=== PATIENT | female | born 1950 | race African-American/Black ===

== ENCOUNTER → 2016-08-01 | Outpatient (CLI) | payer OTHER ==
--- NOTE | 2016-08-01 15:17 | REPMRS ---
Patient History The patient states she has not had a clinical breast exam in over a year. Patient is postmenopausal and is nulliparous. Family history of prostate cancer in father at age 50 or over, breast cancer in paternal cousin at age 40, and colorectal cancer in paternal uncle at age 50 or over. Benign excisional biopsy of the right breast, 2001. Took estrogen for 13 years. Digital Woman Screen Mammo: August 01, 2016 - Exam #: [id number] Bilateral CC and MLO view(s) were taken. Technologist: Mali Isaac, Technologist Prior study comparison: July 19, 2015, digital woman screen mammo performed at [facility]. July 14, 2014, digital woman screen mammo performed at [facility]. April 16, 2013, left breast digital mammo diagnostic unilateral, performed at [facility]. FINDINGS: There are scattered fibroglandular densities. There has been no change in the appearance of the mammogram from the prior studies. There is a mild amount of scattered fibroglandular density which is fairly symmetric. There is no interval development of dominant mass, architectural distortion, or clustered microcalcification suggestive of malignancy. ASSESSMENT: BI-RADS/ACR category 1 mammogram. Negative. Recommendation Routine screening mammogram in 1 year (for women over age 40). This mammogram was interpreted with the aid of an FDA-approved computer-aided dectection system. Electronically Signed By: José Foote MD 08/01/16 [id number]
== END ==
LOC: M WHC 13:33
PROVIDERS: ATTEND Internal Medicine
DX: Z12.31 Encounter for screening mammogram for malignant neoplasm of breast (principal); Z78.0 Asymptomatic menopausal state; Z92.23 Personal history of estrogen therapy; Z80.3 Family history of malignant neoplasm of breast

== ENCOUNTER → 2017-01-02 | Outpatient (CLI) | payer OTHER | LOC: M SLEEP 08:00 | DX: G47.33 Obstructive sleep apnea (adult) (pediatric) (principal) | CPT/HCPCS: 95810 ==

== ENCOUNTER → 2017-04-23 | Outpatient (REF) | payer OTHER ==
[2017-04-23 12:27] LABS: HEMATOCRIT 39.3 % (36.0-47.0); HEMOGLOBIN 12.7 g/dl (12.0-16.0); MEAN CORPUSCULAR HEMOGLOBIN 28.7 pg (27.0-33.0); MEAN CORPUSCULAR HGB CONC 32.3 g/dl (32.0-36.5); MEAN CORPUSCULAR VOLUME 88.7 fl (80.0-96.0); PLATELET COUNT, AUTOMATED 302 10^3/uL (150-450); RED BLOOD COUNT 4.43 10^6/uL (4.00-5.40); RED CELL DISTRIBUTION WIDTH 13.9 % (11.5-14.5); WHITE BLOOD COUNT 7.1 10^3/uL (4.0-10.0)
[2017-04-23 12:36] LABS: ALBUMIN 4.4 GM/DL (3.2-5.2); ALBUMIN/GLOBULIN RATIO 1.33 (1.00-1.93); ALKALINE PHOSPHATASE 72 U/L (45-117); ALT/SGPT 24 U/L (12-78); ANION GAP 8 MEQ/L (8-16); AST/SGOT 19 U/L (7-37); BILIRUBIN,TOTAL 0.6 MG/DL (0.2-1.0); BLOOD UREA NITROGEN 20 MG/DL (7-18); CALCIUM LEVEL 9.7 MG/DL (8.8-10.2); CARBON DIOXIDE LEVEL 28 MEQ/L (21-32); CHLORIDE LEVEL 106 MEQ/L (98-107); CHOLESTEROL LEVEL 224 MG/DL (<200); CHOLESTEROL RISK RATIO 2.909 (<5); CREATININE FOR GFR 0.96 MG/DL (0.55-1.30); GLOMERULAR FILTRATION RATE > 60.0 (>45); GLUCOSE, FASTING 93 MG/DL (70-100); HDL CHOLESTEROL 77 MG/DL (>40); LDL CHOLESTEROL 122.6 MG/DL (<100); MAGNESIUM LEVEL 2.6 MG/DL (1.8-2.4); NON-HDL-C 147 MG/DL; POTASSIUM SERUM 5.1 MEQ/L (3.5-5.1); SODIUM LEVEL 142 MEQ/L (136-145); TOTAL PROTEIN 7.7 GM/DL (6.4-8.2); TRIGLYCERIDES LEVEL 122 MG/DL (<150)
[2017-04-24 14:16] LABS: Lyme Disease IgG/IgM Antibodie <0.91 ISR (0.00-0.90); Lyme Disease IgM Ab Quantitati <0.80 index (0.00-0.79)
== END ==
LOC: M SFHCPLAZ 08:28
DX: Z01.818 Encounter for other preprocedural examination (principal); I10 Essential (primary) hypertension; E78.00 Pure hypercholesterolemia, unspecified; E03.9 Hypothyroidism, unspecified; K21.9 Gastro-esophageal reflux disease without esophagitis; W57.XXXA Bitten or stung by nonvenomous insect and other nonvenomous arthropods, initial encounter
CPT/HCPCS: 83735

== ENCOUNTER 2017-08-03 07:02 | Day surgery (SDC) | payer OTHER ==
[2017-08-03] MEDS ORDERED: PROPOFOL 200 MG/20 ML VIAL As Ordered ×2 (07:03)
[2017-08-03] MEDS ORDERED: LIDOCAINE 2% INJ 100 MG/5 ML SDV (FOR ANES.) As Ordered (07:06)
[2017-08-03] MEDS ORDERED: NS 1,000 ML IV (07:45)
== END 2017-08-03 09:08 | disposition home or self-care (01) ==
LOC: M OPP 07:02
DX: Z12.11 Encounter for screening for malignant neoplasm of colon (principal); D12.3 Benign neoplasm of transverse colon; D12.5 Benign neoplasm of sigmoid colon; Z86.010 Personal history of colon polyps; G47.30 Sleep apnea, unspecified; I10 Essential (primary) hypertension; E78.00 Pure hypercholesterolemia, unspecified; E03.9 Hypothyroidism, unspecified; M12.9 Arthropathy, unspecified; G35 Multiple sclerosis; Z79.899 Other long term (current) drug therapy; Z90.710 Acquired absence of both cervix and uterus; Z78.0 Asymptomatic menopausal state; Z96.651 Presence of right artificial knee joint; Z80.0 Family history of malignant neoplasm of digestive organs
CPT/HCPCS: 45385

== ENCOUNTER → 2017-08-28 | Outpatient (CLI) | payer OTHER | LOC: M RAD 11:46 | DX: Z12.31 Encounter for screening mammogram for malignant neoplasm of breast (principal) | CPT/HCPCS: 77067 ==

== ENCOUNTER → 2018-03-25 | Outpatient (REF) | payer OTHER ==
[~2018-03-25] MED LIST: ALEV220T26 PO; AMBI10TA PO; AMLO5TAB6 PO; CALC1TAB49 PO; LEVO25TA5 PO; LEVO50TA5 PO; MULT1TAB10 PO; NEXI40CA PO; SIMV20TA2 PO; TRAM37.53 PO; VITA100067 PO
[2018-03-25 13:28] LABS: HEMATOCRIT 40.5 % (36.0-47.0); HEMOGLOBIN 12.8 g/dl (12.0-15.5); MEAN CORPUSCULAR HEMOGLOBIN 28.7 pg (27.0-33.0); MEAN CORPUSCULAR HGB CONC 31.6 g/dl (32.0-36.5); MEAN CORPUSCULAR VOLUME 90.8 fl (80.0-96.0); PLATELET COUNT, AUTOMATED 267 10^3/uL (150-450); RED BLOOD COUNT 4.46 10^6/uL (4.00-5.40); WHITE BLOOD COUNT 5.3 10^3/uL (4.0-10.0)
[2018-03-25 13:40] LABS: ALBUMIN 4.1 GM/DL (3.2-5.2); ALT/SGPT 28 U/L (12-78); BILIRUBIN,TOTAL 0.4 MG/DL (0.2-1.0); BLOOD UREA NITROGEN 14 MG/DL (7-18); CALCIUM LEVEL 9.5 MG/DL (8.8-10.2); CARBON DIOXIDE LEVEL 29 MEQ/L (21-32); CHLORIDE LEVEL 105 MEQ/L (98-107); CHOLESTEROL LEVEL 227 MG/DL (<200); CHOLESTEROL RISK RATIO 3.197 (<5); CREATININE FOR GFR 0.96 MG/DL (0.55-1.30); GLOMERULAR FILTRATION RATE > 60.0 (>45); GLUCOSE, FASTING 52 MG/DL (70-100); HDL CHOLESTEROL 71 MG/DL (>40); LDL CHOLESTEROL 132 MG/DL (<100); MAGNESIUM LEVEL 2.1 MG/DL (1.8-2.4); NON-HDL-C 156 MG/DL; POTASSIUM SERUM 4.8 MEQ/L (3.5-5.1); SODIUM LEVEL 140 MEQ/L (136-145); THYROID STIMULATING HORMONE 0.823 uIU/ML (0.358-3.740); TOTAL PROTEIN 7.4 GM/DL (6.4-8.2); TRIGLYCERIDES LEVEL 121 MG/DL (<150)
== END ==
LOC: M SFHCPLAZ 10:48
PROVIDERS: ATTEND Internal Medicine
DX: K21.9 Gastro-esophageal reflux disease without esophagitis (principal); I10 Essential (primary) hypertension; E78.00 Pure hypercholesterolemia, unspecified; E03.9 Hypothyroidism, unspecified

== ENCOUNTER → 2018-05-03 | Outpatient (CLI) | payer OTHER ==
--- NOTE | 2018-05-03 14:31 | REP ---
NONCONTRAST CHEST CT: HISTORY: Low-dose lung cancer screening exam. Tobacco use. No comparison chest imaging. FINDINGS: Digital media relations intern radiograph demonstrates a thoracolumbar scoliosis moderate in degree. Vascular calcification is noted. No significant lung nodule is appreciated. No evidence of pulmonary mass lesion is observed. Exam is otherwise unremarkable. IMPRESSION: Lung RADS category 1 negative findings. Annual screening exam suggested. Electronically Signed by Joshua Foote MD 05/03/2018 02:41 P
== END ==
LOC: M RAD 10:40
PROVIDERS: ATTEND Internal Medicine
DX: Z12.2 Encounter for screening for malignant neoplasm of respiratory organs (principal); F17.200 Nicotine dependence, unspecified, uncomplicated

== ENCOUNTER → 2018-09-20 | Outpatient (CLI) | payer OTHER ==
--- NOTE | 2018-09-20 09:54 | REPMRS ---
Patient History The patient states she has not had a clinical breast exam in over a year. Patient is postmenopausal and is nulliparous. Family history of breast cancer at age 40 in paternal cousin, colorectal cancer at age 50 or over in paternal uncle, prostate cancer at age 50 or over in father. Benign excisional biopsy of the right breast, 2001. Took estrogen for 13 years. Taking unspecified hormones for 35 years. Digital Mammo Screening Bilat: September 20, 2018 - Exam #: [id number] Bilateral CC and MLO view(s) were taken. Technologist: Valeria Davenport, Technologist Prior study comparison: August 28, 2017, bilateral digital mammo screening bilat performed at [facility]. August 01, 2016, digital woman screen mammo, performed at [facility]. July 19, 2015, digital woman screen mammo, performed at [facility]. FINDINGS: There are scattered fibroglandular densities. There is a moderate amount of residual fibroglandular tissue which is fairly symmetric. There is no interval development of dominant mass, architectural distortion, or grouped microcalcification typical of malignancy. There has been no change in the appearance of the mammogram from the prior studies. 3-D tomosynthesis shows no additional findings. Assessment: BI-RADS/ACR category 1 mammogram. Negative Mammogram. Recommendation Routine screening mammogram of both breasts in 1 year (for women over age 40). This patient's Lifetime Breast Cancer RIsk is estimated at 6.1 %. This mammogram was interpreted with the aid of an FDA-approved computer-aided dectection system. Electronically Signed By: José Foote MD 09/20/18 0953
== END ==
LOC: M RAD 08:23
PROVIDERS: ATTEND Internal Medicine
DX: Z12.31 Encounter for screening mammogram for malignant neoplasm of breast (principal)

== ENCOUNTER → 2018-12-18 | Outpatient (REF) | payer OTHER ==
[2018-12-18 16:15] LABS: HEMATOCRIT 39.5 % (36.0-47.0); HEMOGLOBIN 12.4 g/dl (12.0-15.5); MEAN CORPUSCULAR HEMOGLOBIN 29.3 pg (27.0-33.0); MEAN CORPUSCULAR HGB CONC 31.4 g/dl (32.0-36.5); MEAN CORPUSCULAR VOLUME 93.4 fl (80.0-96.0); PLATELET COUNT, AUTOMATED 261 10^3/uL (150-450); RED BLOOD COUNT 4.23 10^6/uL (4.00-5.40); WHITE BLOOD COUNT 6.3 10^3/uL (4.0-10.0)
[2018-12-18 16:46] LABS: ALT/SGPT 28 U/L (12-78); BILIRUBIN,TOTAL 0.4 MG/DL (0.2-1.0); BLOOD UREA NITROGEN 16 MG/DL (7-18); CALCIUM LEVEL 9.9 MG/DL (8.8-10.2); CARBON DIOXIDE LEVEL 31 MEQ/L (21-32); CHLORIDE LEVEL 103 MEQ/L (98-107); CREATININE FOR GFR 1.07 MG/DL (0.55-1.30); GLOMERULAR FILTRATION RATE > 60.0 (>45); GLUCOSE, FASTING 76 MG/DL (70-100); IRON (FE) 105 UG/DL (50-170); MAGNESIUM LEVEL 2.3 MG/DL (1.8-2.4); POTASSIUM SERUM 4.4 MEQ/L (3.5-5.1); SODIUM LEVEL 140 MEQ/L (136-145); THYROID STIMULATING HORMONE 0.886 uIU/ML (0.358-3.740); TOTAL PROTEIN 7.6 GM/DL (6.4-8.2)
[2018-12-18 17:13] LABS: APPEARANCE, URINE CLEAR (CLEAR); BACTERIA, URINE AUTO NEGATIVE (NEGATIVE); BILIRUBIN, URINE AUTO NEGATIVE (NEGATIVE); BLOOD, URINE BLOOD NEGATIVE (NEGATIVE); COLOR, URINE YELLOW (YELLOW); GLUCOSE, URINE (UA) AUTO NEGATIVE (NEGATIVE); KETONE, URINE AUTO NEGATIVE (NEGATIVE); LEUKOCYTE ESTERASE, URINE AUTO NEGATIVE (NEGATIVE); MUCUS, URINE SMALL (NEGATIVE); NITRITE, URINE AUTO NEGATIVE (NEGATIVE); PROTEIN, URINE AUTO NEGATIVE (NEGATIVE); RBC, URINE AUTO 0 /HPF (0-3); SPECIFIC GRAVITY URINE AUTO 1.023 (1.002-1.035); SQUAMOUS EPITHELIAL CELL UR AU 0 /HPF (0-6); UROBILINOGEN, URINE AUTO 0.2 mg/dL (0.0-2.0); WBC, URINE AUTO 1 /HPF (0-3)
== END ==
LOC: M SFHCPLAZ 14:45
PROVIDERS: ATTEND Family Medicine
DX: I10 Essential (primary) hypertension (principal); M25.511 Pain in right shoulder; Z01.818 Encounter for other preprocedural examination

== ENCOUNTER → 2018-12-31 | Outpatient (CLI) | payer OTHER ==
[2018-12-31 14:10] LABS: ALBUMIN 3.9 GM/DL (3.2-5.2)
== END ==
LOC: M PLALAB 10:42
PROVIDERS: ATTEND Physician Assistant Surgical
DX: Z86.718 Personal history of other venous thrombosis and embolism (principal); Z87.19 Personal history of other diseases of the digestive system; Z86.79 Personal history of other diseases of the circulatory system; M25.569 Pain in unspecified knee; M17.12 Unilateral primary osteoarthritis, left knee

== ENCOUNTER → 2019-07-14 | Outpatient (REF) | payer OTHER ==
[~2019-07-14] MED LIST changes: -SIMV20TA2 PO; +SIMV20TA22 PO
[2019-07-14 14:33] LABS: CHOLESTEROL RISK RATIO 3.725 (<5)
== END ==
LOC: M SFHCPLAZ 09:39
PROVIDERS: ATTEND Internal Medicine
DX: E78.00 Pure hypercholesterolemia, unspecified (principal)

== ENCOUNTER → 2019-08-20 | Outpatient (CLI) | payer OTHER ==
[~2019-08-20] MED LIST changes: +AMLO1TAB24 PO; -AMLO5TAB6 PO
--- NOTE | 2019-08-20 23:43 | REP ---
REASON FOR EXAM: Tobacco abuse. COMPARISON: 05/03/2018, which was a Lung-RADS category 1 negative exam. Once again, as per the protocol, only lung window images were sent to the read station for interpretation. There is no change in the lung silva. There are no new abnormal nodules, masses, or opacities. Grossly, the mediastinum and pulmonary kourtney are unchanged. Grossly, the imaged upper abdomen and imaged osseous structures are unchanged. IMPRESSION: No change. Negative Lung-RADS category 1 exam. Electronically Signed by Jluis Castanon DO 08/21/2019 08:08 A
== END ==
LOC: M RAD 14:30
PROVIDERS: ATTEND Internal Medicine
DX: F17.200 Nicotine dependence, unspecified, uncomplicated (principal)

== ENCOUNTER → 2019-10-16 | Outpatient (CLI) | payer OTHER ==
--- NOTE | 2019-10-16 16:21 | REPMRS ---
Patient History The patient states she has not had a clinical breast exam in over a year. Patient is postmenopausal and is nulliparous. Family history of breast cancer at age 40 in paternal cousin, colorectal cancer at age 50 or over in paternal uncle, prostate cancer at age 50 or over in father. Benign excisional biopsy of the right breast, 2001. Took estrogen for 13 years. Took unspecified hormones for 35 years. 3D TOMOSYNTHESIS WAS PERFORMED. The [facility] lifetime risk for breast cancer is 5.8%. VOLPARA DENSITY B. Digital Woman Screen Mammo: October 16, 2019 - Exam #: [id number] Bilateral CC and MLO view(s) were taken. Technologist: Mali Isaac, Technologist Prior study comparison: September 20, 2018, bilateral digital mammo screening bilat, performed at [facility]. August 28, 2017, bilateral digital mammo screening bilat, performed at [facility]. FINDINGS: The breast tissue is heterogeneously dense. This may lower the sensitivity of mammography. There has been no change in the appearance of the mammogram from the prior studies. There is a moderate amount of residual fibroglandular tissue which is fairly symmetric. There is no interval development of dominant mass, areas of architectural distortion, or clustered microcalcification typical of malignancy. Assessment: BI-RADS/ACR category 1 mammogram. Negative Mammogram. Recommendation Routine screening mammogram in 1 year (for women over age 40). This mammogram was interpreted with the aid of an FDA-approved computer-aided dectection system. Electronically Signed By: Aurelio Hernandez MD 10/16/19 [id number]
== END ==
LOC: M WHC 15:03
PROVIDERS: ATTEND Internal Medicine
DX: Z12.31 Encounter for screening mammogram for malignant neoplasm of breast (principal); Z78.0 Asymptomatic menopausal state; Z80.42 Family history of malignant neoplasm of prostate; Z86.018 Personal history of other benign neoplasm; Z92.23 Personal history of estrogen therapy; Z92.29 Personal history of other drug therapy

== ENCOUNTER → 2020-06-30 | Outpatient (CLI) | payer OTHER ==
[2020-06-30 09:24] LABS: HEMATOCRIT 38.2 % (36.0-47.0); HEMOGLOBIN 11.9 g/dl (12.0-15.5); MEAN CORPUSCULAR HEMOGLOBIN 29.3 pg (27.0-33.0); MEAN CORPUSCULAR HGB CONC 31.2 g/dl (32.0-36.5); MEAN CORPUSCULAR VOLUME 94.1 fl (80.0-96.0); PLATELET COUNT, AUTOMATED 281 10^3/uL (150-450); RED BLOOD COUNT 4.06 10^6/uL (4.00-5.40); WHITE BLOOD COUNT 4.8 10^3/uL (4.0-10.0)
[2020-06-30 11:40] LABS: ALT/SGPT 36 U/L (12-78); BILIRUBIN,TOTAL 0.4 MG/DL (0.2-1.0); BLOOD UREA NITROGEN 24 MG/DL (7-18); CALCIUM LEVEL 9.5 MG/DL (8.8-10.2); CARBON DIOXIDE LEVEL 29 MEQ/L (21-32); CHLORIDE LEVEL 108 MEQ/L (98-107); CHOLESTEROL LEVEL 207 MG/DL (<200); CHOLESTEROL RISK RATIO 2.957 (<5); CREATININE FOR GFR 1.13 MG/DL (0.55-1.30); GLOMERULAR FILTRATION RATE > 60.0 (>39); GLUCOSE, FASTING 88 MG/DL (70-100); HDL CHOLESTEROL 70 MG/DL (>40); LDL CHOLESTEROL 109 MG/DL (<100); MAGNESIUM LEVEL 2.1 MG/DL (1.8-2.4); NON-HDL-C 137 MG/DL; POTASSIUM SERUM 4.6 MEQ/L (3.5-5.1); SODIUM LEVEL 141 MEQ/L (136-145); TOTAL PROTEIN 7.2 GM/DL (6.4-8.2); TRIGLYCERIDES LEVEL 142 MG/DL (<150)
== END ==
LOC: M LAB 07:56
PROVIDERS: ATTEND Internal Medicine
DX: I10 Essential (primary) hypertension (principal)

== ENCOUNTER → 2020-06-30 | Outpatient (CLI) | payer OTHER ==
--- NOTE | 2020-06-30 11:15 | REPVR ---
PROCEDURE INFORMATION: Exam: MR Lumbar Spine Without Contrast Exam date and time: 06/30/2020 8:58 AM Age: 69 years old Clinical indication: Patient HX: Low back pain weakness; Additional info: Radiculopathy TECHNIQUE: Imaging protocol: Multiplanar magnetic resonance images of the lumbar spine without intravenous contrast. COMPARISON: No relevant prior studies available. FINDINGS: Limitations: Evaluation is limited due to severe scoliosis. Vertebrae: Severe dextroconvex scoliosis of the lumbar spine is present. There is marked left lateral translocation of L1 with respect to L2. There is moderate right lateral translocation of L3 with respect to L4. There is marked right lateral translocation of L4 with respect L5. No acute compression fracture is seen. Spinal cord: The conus medullaris terminates at the L1 level. There is no evidence of arachnoiditis or cauda equina compression. T12-L1: There is disc dehydration, moderate disc space narrowing, and mild diffuse circumferential disc bulging. This is causing mild spinal canal stenosis. L1-L2: There is disc dehydration, severe disc space narrowing, moderate diffuse circumferential disc bulging, and severe facet arthropathy. This is causing mild spinal canal stenosis, severe narrowing of the left subarticular recess, moderate/severe left neural foraminal narrowing, and moderate right neural foraminal narrowing. L2-L3: There is disc dehydration, severe disc space narrowing, mild diffuse circumferential disc bulging, left foraminal and extraforaminal osteophytic ridging, moderate facet arthropathy, and thickening of the ligamentum flavum. This is causing minimal spinal canal stenosis, mild narrowing of the left subarticular recess, and moderate/severe left neural foraminal narrowing. There is no right foraminal stenosis. L3-L4: There is disc dehydration, severe disc space narrowing, mild diffuse circumferential disc bulging, and a large superimposed left foraminal, extraforaminal, and far left lateral disc osteophyte complex. Severe facet arthropathy and thickening of the ligamentum flavum is also present. This is causing mild spinal canal stenosis, moderate narrowing of the left subarticular recess, and severe left neural foraminal narrowing. There is no significant right foraminal stenosis. L4-L5: There is disc dehydration, moderate disc space narrowing, marked diffuse circumferential disc bulging, circumferential osteophytic ridging, severe facet arthropathy, and thickening of the ligamentum flavum. This is causing moderate/severe spinal canal stenosis, severe narrowing of the right subarticular recess, severe right neural foraminal narrowing, moderate narrowing of the left subarticular recess, and moderate left neural foraminal narrowing. L5-S1: At there is moderate diffuse circumferential disc bulging and facet arthropathy. There is no significant spinal canal stenosis. There is mild narrowing of the subarticular recesses, mild left neural foraminal narrowing, and moderate right neural foraminal narrowing. Soft tissues: Unremarkable. IMPRESSION: 1. Marked dextroconvex scoliosis of the lumbar spine 2. Severe degenerative changes of the lumbar spine as discussed above Electronically signed by: Rusty Benoit On 06/30/2020 11:15:01 AM
== END ==
LOC: M RAD 07:52
PROVIDERS: ATTEND Nurse Practitioner Family
DX: M51.36 Other intervertebral disc degeneration, lumbar region (principal); M41.86 Other forms of scoliosis, lumbar region; M54.16 Radiculopathy, lumbar region

== ENCOUNTER → 2020-07-23 | Outpatient (CLI) | payer SELFPAY | LOC: M LABSMTC 12:09 | PROVIDERS: ATTEND Pediatrics | DX: Z11.52 Encounter for screening for COVID-19 (principal) ==

== ENCOUNTER → 2020-08-27 | Outpatient (CLI) | payer OTHER ==
--- NOTE | 2020-08-27 13:25 | REP ---
INDICATION: PAIN IN LT HIP injury May 2019 in August 2019, pain COMPARISON: None. TECHNIQUE: Coronal T1, STIR through the pelvis, axial, coronal, sagittal T2 fat sat left hip. FINDINGS: There is mild to moderate chondromalacia at the hip joint with mild subchondral marrow edema in the superior aspect of the femoral head and in the adjacent acetabulum. There is no occult fracture or avascular necrosis. There is diffuse circumferential tearing of the labrum. There is no joint effusion. There is mild bilateral greater trochanteric tendonobursitis. No other abnormal signal is seen in the surrounding soft tissues. The visualized intrapelvic structures are unremarkable. 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 No occult fracture or avascular necrosis. Diffuse circumferential tearing of the labrum. Mild bilateral greater trochanteric tendonobursitis. <Electronically signed by Aurelio Hernandez > 08/27/20 1713
== END ==
LOC: M PLAIMG 11:16
PROVIDERS: ATTEND Nurse Practitioner Family
DX: M25.552 Pain in left hip (principal)

== ENCOUNTER → 2020-09-16 | Outpatient (CLI) | payer OTHER ==
--- NOTE | 2020-09-16 15:17 | REP ---
INDICATION: SMOKER. COMPARISON: Multiple the latest 08/20/2019 TECHNIQUE: Axial noncontrast images from the thoracic inlet to the upper abdomen using low-dose lung screening technique (LDCT). As per the protocol only lung window images were sent to the read station for interpretation FINDINGS: There is an unchanged 6 mm size nodule in the right lung apex posteriorly. Although not visualized on the 08/20/2019 low-dose screening lung CT it was visualized on the 05/03/2018 exam and is unchanged from that exam. There is minimal biapical pleuroparenchymal scarring. This is unchanged. There are no new abnormal nodules, masses, or opacities. Grossly, the mediastinum and pulmonary kourtney are unchanged. Grossly, the imaged upper abdomen and imaged osseous structures are unchanged. IMPRESSION: Stable lung rads category 2 low-dose screening CT examination of the lungs. Yearly screening is recommended as per the revised Fleischner society criteria. <Electronically signed by Jluis Castanon > 09/16/20 1728
== END ==
LOC: M RAD 14:34
PROVIDERS: ATTEND Internal Medicine
DX: Z87.891 Personal history of nicotine dependence (principal)

== ENCOUNTER → 2020-11-10 | Outpatient (CLI) | payer OTHER ==
--- NOTE | 2020-11-10 16:49 | REPMRS ---
Patient History The patient states she has not had a clinical breast exam in over a year. Family history of breast cancer at age 40 in paternal cousin, colorectal cancer at age 50 or over in paternal uncle, prostate cancer at age 50 or over in father. Benign excisional biopsy of the right breast, 2001. Took estrogen for 13 years. Took unspecified hormones for 35 years. Patient states no breast complaints today. Patient has signed MRS History Sheet. Digital Woman Screen Mammo: November 10, 2020 - Exam #: [id number] Bilateral CC and MLO view(s) were taken. Technologist: Karolyn Hua, Technologist Prior study comparison: October 16, 2019, bilateral digital woman screen mammo performed at [facility]. September 20, 2018, bilateral digital mammo screening bilat, performed at [facility]. August 28, 2017, bilateral digital mammo screening bilat, performed at [facility]. FINDINGS: There are scattered fibroglandular densities. The Volpara volumetric breast density category is:B. There is an area of flattening or contour deformity in the lateral aspect of the right breast on the craniocaudal view. By history, this patient underwent a excisional biopsy in 2001 in the right breast. However, the flattening appears to be a new mammographic finding. This merits further evaluation. There has been no other change in the appearance of the mammogram from the prior studies. There is a mild amount of scattered fibroglandular density which is fairly symmetric. There is no other interval development of dominant mass, architectural distortion, or grouped microcalcification suggestive of malignancy. 3-D tomosynthesis shows no additional findings. Assessment: BI-RADS/ACR category 0 mammogram, Incomplete: Need additional imaging evaluation and/or prior mammograms for comparison. Recommendation Ultrasound and special view mammogram of the right breast with scar marker. [facility] Lifetime Breast Cancer Risk is estimated at 5.4 %. This mammogram was interpreted with the aid of an FDA-approved computer-aided dectection system. Electronically Signed By: José Foote MD 11/10/20 [id number]
== END ==
LOC: M WHC 15:22
PROVIDERS: ATTEND Internal Medicine
DX: Z12.31 Encounter for screening mammogram for malignant neoplasm of breast (principal)

== ENCOUNTER → 2020-11-25 | Outpatient (CLI) | payer OTHER ==
--- NOTE | 2020-11-25 15:29 | REP ---
INDICATION: RIGHT BREAST ADD VIEWS WITH SCAR MARKER. COMPARISON: 11/10/2020, 10/16/2019, 09/20/2018. TECHNIQUE: Additional tomographic sequences are performed of the right breast. FINDINGS: There is no persistent flattening or indentation of the lateral skin surface on the right CC images. The parenchymal pattern is unchanged since prior exams dating back to 2019. No new abnormality is seen. There is no architectural distortion or mass. IMPRESSION: BIRADS/ACR category 1, negative. No persistent architectural distortion or mass in the right breast on additional imaging. This mammogram was interpreted with the aid of an FDA-approved computer-aided detection system. The patient letter being requested is M 1. RECOMMENDATION: Repeat screening mammography recommended 1 year (for women over 40). <Electronically signed by Aurelio Hernandez > 11/25/20 [id number]
== END ==
LOC: M WHC 14:24
PROVIDERS: ATTEND Internal Medicine
DX: Z12.31 Encounter for screening mammogram for malignant neoplasm of breast (principal)
CPT/HCPCS: 77065; G0279

== ENCOUNTER → 2021-03-12 | Outpatient (CLI) | payer OTHER ==
[~2021-03-12] MED LIST changes: +BUPR150T12; +CELE1CAP9; +CHLO125TA; +GABA-282; +HYDR-3490 PO; +HYDR12.55 PO; +LEVO50TA45; +LOSA100T45
== END ==
LOC: M LABSMTC 12:13
PROVIDERS: ATTEND Ophthalmology
DX: Z01.818 Encounter for other preprocedural examination (principal); Z11.52 Encounter for screening for COVID-19

== ENCOUNTER 2021-03-17 11:54 | Day surgery (SDC) | payer OTHER ==
[~2021-03-17] VITALS: Ht 167.6 cm; Wt 56.7 kg
[~2021-03-17 11:54] MED LIST changes: +CYCLOPENTOLATE 1% OPHTH SOLN 2 ML BTL OS SCH; +FLURBIPROFEN 0.03% OPHTH SOLN 2.5 ML OS SCH; +LIDOCAINE 1% SDV 5ML VIAL As Ordered ONE; +LR 1,000 ML IV SCH; +MIDAZOLAM INJ 2MG/2ML VIAL (J2250 PER 1MG) As Ordered ONE; +fentaNYL 100 MCG/2 ML INJECTION As Ordered ONE
[2021-03-17] MEDS: PHENYLEPHRINE 2.5% OPHTH SOL 2ML OS SCH ×2 (12:23→13:40)
[2021-03-17] MEDS: TETRACAINE 0.5% OPHTH SOLN 4ML OS SCH ×2 (12:24→13:40)
[2021-03-17] MEDS ORDERED: MAXITROL OPHTH SUSP 5 ML As Ordered ONE (14:14)
[2021-03-17 15:25] VITALS: BP 148/77
== END 2021-03-17 15:25 | disposition home or self-care (01) ==
LOC: M SDC 11:54
PROVIDERS: ATTEND Ophthalmology
DX: H25.12 Age-related nuclear cataract, left eye (principal); I10 Essential (primary) hypertension; E03.9 Hypothyroidism, unspecified; K21.9 Gastro-esophageal reflux disease without esophagitis; G47.33 Obstructive sleep apnea (adult) (pediatric); Z79.899 Other long term (current) drug therapy
CPT/HCPCS: 66984; J2250; J3010

== ENCOUNTER → 2021-04-13 | Outpatient (CLI) | payer OTHER ==
[~2021-04-13] MED LIST changes: -CYCLOPENTOLATE 1% OPHTH SOLN 2 ML BTL OS SCH; -FLURBIPROFEN 0.03% OPHTH SOLN 2.5 ML OS SCH; -LIDOCAINE 1% SDV 5ML VIAL As Ordered ONE; -LR 1,000 ML IV SCH; -MIDAZOLAM INJ 2MG/2ML VIAL (J2250 PER 1MG) As Ordered ONE; -fentaNYL 100 MCG/2 ML INJECTION As Ordered ONE
== END ==
LOC: M LABSMTC 10:23
PROVIDERS: ATTEND Anesthesiology
DX: Z01.818 Encounter for other preprocedural examination (principal); Z11.52 Encounter for screening for COVID-19

== ENCOUNTER → 2021-05-07 | Outpatient (CLI) | payer OTHER ==
[~2021-05-07] MED LIST changes: -BUPR150T12; +BUPR150T12 PO; -CELE1CAP9; +CELE1CAP9 PO; -CHLO125TA; +CHLO125TA PO; -GABA-282; +GABA-282 PO; -LEVO50TA45; +LEVO50TA45 PO; -LOSA100T45; +LOSA100T45 PO; +MIRT-62 PO; +MULT-90 PO
== END ==
LOC: M LABSMTC 10:37
PROVIDERS: ATTEND Anesthesiology
DX: Z01.812 Encounter for preprocedural laboratory examination (principal); Z20.822 Contact with and (suspected) exposure to COVID-19

== ENCOUNTER 2021-05-12 07:32 | Day surgery (SDC) | payer OTHER ==
[~2021-05-12] VITALS: Ht 165.1 cm; Wt 58.2 kg
[~2021-05-12 07:32] MED LIST changes: +LIDOCAINE 1% SDV 5ML VIAL As Ordered ONE; +LR 1,000 ML IV SCH; +MAXITROL OPHTH SUSP 5 ML As Ordered ONE; +TOBRADEX OPHTH OINT 3.5 GM As Ordered ONE
[2021-05-12] MEDS: CYCLOPENTOLATE 1% OPHTH SOLN 2 ML BTL OD SCH ×3 (07:53→08:08)
[2021-05-12] MEDS: FLURBIPROFEN 0.03% OPHTH SOLN 2.5 ML OD SCH ×3 (07:53→08:08)
[2021-05-12] MEDS: TETRACAINE 0.5% OPHTH SOLN 4ML OD SCH ×2 (07:53→08:03)
[2021-05-12] MEDS: PHENYLEPHRINE 2.5% OPHTH SOL 2ML OD SCH ×3 (07:54→08:08)
[2021-05-12] MEDS ORDERED: MIDAZOLAM INJ 2MG/2ML VIAL (J2250 PER 1MG) As Ordered ONE (09:45)
[2021-05-12] MEDS ORDERED: fentaNYL 100 MCG/2 ML INJECTION As Ordered ONE (09:45)
[2021-05-12 10:34] VITALS: BP 138/82
== END 2021-05-12 10:48 | disposition home or self-care (01) ==
LOC: M SDC 07:32
PROVIDERS: ATTEND Ophthalmology
DX: H25.11 Age-related nuclear cataract, right eye (principal); I10 Essential (primary) hypertension; E78.5 Hyperlipidemia, unspecified; G35 Multiple sclerosis; E03.9 Hypothyroidism, unspecified; K21.9 Gastro-esophageal reflux disease without esophagitis; G47.30 Sleep apnea, unspecified; Z79.899 Other long term (current) drug therapy; F17.218 Nicotine dependence, cigarettes, with other nicotine-induced disorders
CPT/HCPCS: 66984; J2250; J3010

== ENCOUNTER → 2021-07-07 | Outpatient (CLI) | payer OTHER ==
[~2021-07-07] MED LIST changes: -LIDOCAINE 1% SDV 5ML VIAL As Ordered ONE; -LR 1,000 ML IV SCH; -MAXITROL OPHTH SUSP 5 ML As Ordered ONE; -TOBRADEX OPHTH OINT 3.5 GM As Ordered ONE
[2021-07-07 14:07] LABS: BASO % 0.2 % (0.0-1.0); EOS # 0.4 10^3/uL (0.0-0.5); EOS % 7.8 % (0.0-3.0); HEMATOCRIT 37.7 % (36.0-47.0); HEMOGLOBIN 11.8 g/dl (12.0-15.5); LYMPH # 1.8 10^3/uL (1.5-5.0); LYMPH % 35.1 % (24.0-44.0); MEAN CORPUSCULAR HEMOGLOBIN 29.1 pg (27.0-33.0); MEAN CORPUSCULAR HGB CONC 31.3 g/dl (32.0-36.5); MEAN CORPUSCULAR VOLUME 93.1 fl (80.0-96.0); MONO # 0.5 10^3/uL (0.0-0.8); MONO % 9.6 % (2.0-8.0); NEUTROPHILS # 2.4 10^3/uL (1.5-8.5); NEUTROPHILS % 47.1 % (36.0-66.0); PLATELET COUNT, AUTOMATED 274 10^3/uL (150-450); RED BLOOD COUNT 4.05 10^6/uL (4.00-5.40)
[2021-07-07 14:43] LABS: ALBUMIN 3.9 GM/DL (3.2-5.2); BILIRUBIN,TOTAL 0.4 MG/DL (0.2-1.0); CALCIUM LEVEL 9.3 MG/DL (8.8-10.2); CHOLESTEROL RISK RATIO 3.218 (<5); CREATININE FOR GFR 1.3 MG/DL (0.55-1.30); GLOMERULAR FILTRATION RATE 51.9 (>39); MAGNESIUM LEVEL 2.1 MG/DL (1.8-2.4); POTASSIUM SERUM 4.4 MEQ/L (3.5-5.1); THYROID STIMULATING HORMONE 1.53 uIU/ML (0.358-3.740); TOTAL PROTEIN 7.4 GM/DL (6.4-8.2)
== END ==
LOC: M PLALAB 09:24
PROVIDERS: ATTEND Internal Medicine
DX: I10 Essential (primary) hypertension (principal)

== ENCOUNTER → 2021-09-20 | Outpatient (CLI) | payer OTHER | LOC: M RAD 14:01 | PROVIDERS: ATTEND Internal Medicine | DX: F17.200 Nicotine dependence, unspecified, uncomplicated (principal); R91.1 Solitary pulmonary nodule ==

== ENCOUNTER → 2021-12-01 | Outpatient (CLI) | payer OTHER | LOC: M PLAIMG 11:59 | PROVIDERS: ATTEND Physician Assistant | DX: M77.32 Calcaneal spur, left foot (principal) ==

== ENCOUNTER → 2022-06-13 | Outpatient (REF) | payer OTHER ==
[~2022-06-13] MED LIST changes: -LOSA100T45 PO; +LOSA100T46 PO
[2022-06-13 15:03] LABS: FERRITIN 85.3 NG/ML (7.3-270.7)
== END ==
LOC: M LAB REF 12:57
PROVIDERS: ATTEND Internal Medicine
DX: D64.9 Anemia, unspecified (principal)

== ENCOUNTER → 2022-07-11 | Outpatient (CLI) | payer OTHER | LOC: M WHC 08:59 | PROVIDERS: ATTEND Internal Medicine | DX: Z13.820 Encounter for screening for osteoporosis (principal) ==

== ENCOUNTER 2022-10-24 08:13 | Day surgery (SDC) | payer OTHER ==
[~2022-10-24] VITALS: Ht 167.6 cm; Wt 53.5 kg
[~2022-10-24 08:13] MED LIST changes: +CELE0.09 PO; -CELE1CAP9 PO; -MIRT-62 PO; +MIRT-88 PO; +NS 1,000 ML IV ONE
[2022-10-24] MEDS ORDERED: propofoL 500 MG/50 ML VIAL As Ordered ONE (08:20)
[2022-10-24] MEDS ORDERED: fentaNYL 100 MCG/2 ML INJECTION As Ordered ONE (08:21)
[2022-10-24] MEDS ORDERED: LIDOCAINE 2% 100MG/5ML SDV (FOR ANES.) As Ordered ONE (08:22)
[2022-10-24] MEDS ORDERED: ePHEDrine SULFATE 25 MG/5 ML(5MG/ML) SYRINGE As Ordered ONE (09:56)
[2022-10-24 10:04] VITALS: TEMP 96.2
[2022-10-24 10:17] VITALS: BP 99/54; O2SAT 99
== END 2022-10-24 10:17 | disposition home or self-care (01) ==
LOC: M OPP 08:13
PROVIDERS: ATTEND Internal Medicine Gastroenterology
DX: Z86.010 Personal history of colon polyps (principal); Z80.0 Family history of malignant neoplasm of digestive organs; K64.4 Residual hemorrhoidal skin tags; K64.8 Other hemorrhoids; R12 Heartburn; R63.4 Abnormal weight loss; I10 Essential (primary) hypertension; E78.5 Hyperlipidemia, unspecified; E03.9 Hypothyroidism, unspecified; K21.9 Gastro-esophageal reflux disease without esophagitis; M19.90 Unspecified osteoarthritis, unspecified site; G43.909 Migraine, unspecified, not intractable, without status migrainosus; G35 Multiple sclerosis; Z96.643 Presence of artificial hip joint, bilateral; F17.200 Nicotine dependence, unspecified, uncomplicated; Z91.030 Bee allergy status; Z79.890 Hormone replacement therapy; Z79.899 Other long term (current) drug therapy; Z84.89 Family history of other specified conditions
CPT/HCPCS: 43235; 45378; J3010

== ENCOUNTER 2022-11-04 12:45 | Emergency (ER) | payer OTHER ==
[~2022-11-04] VITALS: Ht 167.6 cm; Wt 52.3 kg
[~2022-11-04 12:45] MED LIST changes: -NS 1,000 ML IV ONE
[2022-11-04] MEDS ORDERED: FAMO40TA3 PO (13:19)
[2022-11-04] MEDS ORDERED: DERMABOND TOPICAL SKIN ADHESIVE TOP ONE (13:35)
[2022-11-04 14:19] VITALS: BP 135/71; TEMP 98.1; O2SAT 100
== END 2022-11-04 14:22 | disposition home or self-care (01) ==
LOC: M ED 12:45 → EDBD 12:45 → M ED 14:22
DX: S01.21XA Laceration without foreign body of nose, initial encounter (principal); S00.83XA Contusion of other part of head, initial encounter; W19.XXXA Unspecified fall, initial encounter; Y92.410 Unspecified street and highway as the place of occurrence of the external cause; I10 Essential (primary) hypertension; K21.9 Gastro-esophageal reflux disease without esophagitis; E03.9 Hypothyroidism, unspecified; F32.A Depression, unspecified; Z79.899 Other long term (current) drug therapy; Z91.030 Bee allergy status

== ENCOUNTER → 2023-02-07 | Outpatient (REF) | payer OTHER ==
[~2023-02-07] MED LIST changes: +FAMO40TA3 PO
[2023-02-08 13:14] LABS: PERCENT SATURATION 41.3 % (13.2-45.0)
[2023-02-08 13:16] LABS: FERRITIN 116.2 NG/ML (7.3-270.7)
== END ==
LOC: M LAB REF 11:25
PROVIDERS: ATTEND Internal Medicine
DX: D64.9 Anemia, unspecified (principal)

== ENCOUNTER 2023-03-17 11:20 | Emergency (ER) | payer OTHER ==
[~2023-03-17] VITALS: Ht 167.6 cm; Wt 52.3 kg
[2023-03-17] MEDS ORDERED: TYLE650T38 PO (11:47)
[2023-03-17] MEDS ORDERED: ACET325C5 PO (11:47)
[2023-03-17] MEDS: PERCOCET 5MG/325MG TAB PO ONE (11:59)
[2023-03-17 13:38] VITALS: BP 125/60; TEMP 96.9; O2SAT 99
== END 2023-03-17 13:40 | disposition home or self-care (01) ==
LOC: M ED 11:20 → EDBD 11:20 → M ED 13:40
DX: M25.562 Pain in left knee (principal); I10 Essential (primary) hypertension; E78.5 Hyperlipidemia, unspecified; E03.9 Hypothyroidism, unspecified; G47.33 Obstructive sleep apnea (adult) (pediatric); F17.210 Nicotine dependence, cigarettes, uncomplicated; G35 Multiple sclerosis; Z91.030 Bee allergy status; Z79.899 Other long term (current) drug therapy; Z79.1 Long term (current) use of non-steroidal anti-inflammatories (NSAID); Z79.810 Long term (current) use of selective estrogen receptor modulators (SERMs)

== ENCOUNTER → 2023-05-16 | Outpatient (CLI) | payer MEDICARE, OTHER ==
[~2023-05-16] MED LIST changes: +ACET325C5 PO; +TYLE650T38 PO
== END ==
LOC: M RAD 13:15
PROVIDERS: ATTEND Internal Medicine
DX: Z87.891 Personal history of nicotine dependence (principal)

== ENCOUNTER → 2023-06-14 | Outpatient (CLI) | payer OTHER | LOC: M RAD 08:32 | PROVIDERS: ATTEND Internal Medicine | DX: M19.90 Unspecified osteoarthritis, unspecified site (principal) ==

== ENCOUNTER → 2023-09-06 | Outpatient (CLI) | payer OTHER ==
[~2023-09-06] MED LIST changes: +TRAM-443 PO; -TRAM37.53 PO
== END ==
LOC: M RAD 12:18
PROVIDERS: ATTEND Internal Medicine
DX: M16.0 Bilateral primary osteoarthritis of hip (principal); M85.852 Other specified disorders of bone density and structure, left thigh; M85.851 Other specified disorders of bone density and structure, right thigh; M25.551 Pain in right hip; M25.552 Pain in left hip

== ENCOUNTER → 2023-10-04 | Outpatient (REF) | payer OTHER ==
[~2023-10-04] MED LIST changes: -TRAM-443 PO; +TRAM1TAB42 PO
[2023-10-04 12:19] LABS: PERCENT SATURATION 28.4 % (13.2-45.0)
[2023-10-04 12:20] LABS: FERRITIN 111.2 NG/ML (7.3-270.7)
== END ==
LOC: M LAB REF 11:23
PROVIDERS: ATTEND Internal Medicine
DX: Z01.818 Encounter for other preprocedural examination (principal); M16.11 Unilateral primary osteoarthritis, right hip

== ENCOUNTER → 2024-02-07 | Outpatient (REF) | payer OTHER ==
[~2024-02-07] MED LIST changes: +GABA-1172 PO; -GABA-282 PO
[2024-02-07 17:50] LABS: INR 0.94; PARTIAL THROMBOPLASTIN TIME 29.1 SECONDS (24.8-34.2); PROTHROMBIN TIME 12.8 SECONDS (12.5-14.5)
[2024-02-07 18:23] LABS: PERCENT SATURATION 36.3 % (13.2-45.0)
[2024-02-07 18:24] LABS: FERRITIN 45.1 NG/ML (7.3-270.7)
[2024-02-07 18:57] LABS: HEPATITIS C VIRUS ABY INDEX 0.13 INDEX (<0.8)
== END ==
LOC: M LAB REF 16:18
PROVIDERS: ATTEND Internal Medicine
DX: Z13.89 Encounter for screening for other disorder (principal); Z01.818 Encounter for other preprocedural examination

== ENCOUNTER → 2024-09-02 | Outpatient (CLI) | payer OTHER ==
[~2024-09-02] MED LIST changes: -AMBI10TA PO; +ZOLP-533 PO
== END ==
LOC: M RAD 08:51
PROVIDERS: ATTEND Internal Medicine
DX: M54.16 Radiculopathy, lumbar region (principal)

== ENCOUNTER → 2024-12-11 | Outpatient (CLI) | payer OTHER | LOC: M LAB 14:46 → M RAD 14:46 | PROVIDERS: ATTEND Nurse Practitioner Adult Health | DX: D16.7 Benign neoplasm of ribs, sternum and clavicle (principal) ==